=== PATIENT | female | born 1965 | race Two or more races ===

== ENCOUNTER 2024-03-07 00:34 | Inpatient (IN) | payer OTHER ==
[~2024-03-07] VITALS: Ht 160 cm; Wt 59.0 kg
[2024-03-07] MEDS ORDERED: SINGULAIR5 MG PO (00:38)
--- NOTE | 2024-03-07 00:38 | NUR ---
SE RECIBE PTE EN AMBULANCIA LA MISMA SE OBSERVA RECIBIENDO TERAPIA RESPIRATORIA ALBUTEROL PARAMEDICOS REFIEREN SER LA SEGUNDA DOSIS QUE LE BRINDAN JUNTO A SOLUMEDROL POR VENA DONDE SE OBSERVA #18 EN BRAZO JJ YA QUE PTE PRESENTA ASMA DE LA CUAL PADECE.
[2024-03-07] MEDS ORDERED: BUDESONIDE 0.5 MG/2 ML AMPUL.NEB IH STA (01:10)
[2024-03-07] MEDS ORDERED: HYDROCODONE/CHLORPHEN P-STIREX 5 ML ML PO STA (01:12)
[2024-03-07] MEDS ORDERED: ALBUTEROL SULFATE 3 ML/2.5 MG AMPUL.NEB IH SCH ×2 (01:13→01:15)
--- NOTE | 2024-03-07 01:22 | NUR ---
PTE ALERTA Y ORIENTADA X3. SE REALIZAN MUESTRAS DE LAB TRISTAN ORDEN MEDICA Y BAJO MEDIDAS ASEPTICAS. SE ADMNISTRA MEDICAMENTO TRISTAN ORDEN MEDICA. SE NOTIFICAN TERAPIAS A TR.
[2024-03-07 01:27] LABS: HEMATOCRIT 40.2 % (36.0-45.00); HEMOGLOBIN 13.9 g/dL (12.0-15.00); MEAN CELL VOLUME 86.1 fL (80.00-100.00); MEAN CORPUSCULAR HEMOGLOBIN 29.8 pg (27.00-32.0); MEAN CORPUSCULAR HGB CONC 34.6 g/dl (32.0-36.0); PLATELET COUNT 298 K/uL (150-450); RED BLOOD COUNT 4.66 M/uL (4.00-6.00); RED CELL DISTRIBUTION WIDTH 13.5 % (11.5-14.5)
[2024-03-07 02:04] LABS: ALBUMIN 4.2 gm/dL (3.4-5.0); BILIRUBIN TOTAL 0.42 mg/dL (0.3-1.2); CALCIUM 9.8 mg/dL (8.5-10.1); CREATININE SERUM 0.58 mg/dL (0.55-1.02); GFR 106.04; GLOBULINA 3.5 G/DL (2.4-3.5); POTASSIUM 3.69 mEq/L (3.5-5.1); TOTAL PROTEIN 7.7 gm/dL (6.4-8.2)
--- NOTE | 2024-03-07 07:31 | NUR ---
SE RECIBE PTE ALERTA ORIENTADA X3.SE RECIBE EN CHARLA CON BARANDAS ELEVADAS POR FAIR SEGURIDAD.VENOPUNCION PATENTE MANDEEP DE EDEMA Y ERITEMA H/L #18 EN DERECHA.PENDIENTE CONSULTA MEDICA CON .
--- NOTE | 2024-03-07 07:34 | NUR ---
SE RECIBE PTE ALERTA ORIENTADA X3 EN CHARLA CON BARANDAS ELEVADAS POR FAIR SEGURIDAD CON H/L EN SARAHO JJ ANGIO #18.PENDIENTE CONSULTA MEDICA CON .
[2024-03-07] MEDS ORDERED: SODIUM CHLORIDE 0.45 % 1,000 ML IV SCH (08:00)
[2024-03-07] MEDS ORDERED: GUAIFEN/DEXTROMETHORPHAN/PE 10 ML BLIST.PACK PO PRN (08:15)
[2024-03-07 08:44] VITALS: BP 120/76
[2024-03-07] MEDS ORDERED: LEVALBUTEROL HCL 0.63 MG/3 ML SOLUTION IH SCH (09:00)
[2024-03-07] MEDS ORDERED: AZITHROMYCIN 500 MG in 0.9 % SODIUM CHLORIDE 250 ML IV SCH (09:00)
[2024-03-07] MEDS ORDERED: METHYLPREDNISOLONE SOD SUCC 40 MG VIAL IV SCH (09:00)
[2024-03-07] MEDS ORDERED: BENZONATATE 100 MG CAPSULE PO SCH (09:00)
[2024-03-07] MEDS ORDERED: FAMOtidine 20 MG TABLET PO SCH (09:00)
[2024-03-07] MEDS ORDERED: IPRATROPIUM BROMIDE 0.5 MG/2.5 ML AMPUL.NEB IH SCH (09:00)
[2024-03-07 16:20] VITALS: BP 126/74; O2SAT 98
[2024-03-07] MEDS ORDERED: MONTELUKAST SODIUM 10 MG TABLET PO SCH (17:00)
[2024-03-07] MEDS ORDERED: LORATADINE 10 MG TABLET PO SCH (21:00)
[2024-03-08 01:29] VITALS: BP 128/78; O2SAT 98
[2024-03-08 06:05] LABS: HEMATOCRIT 38.5 % (36.0-45.00); HEMOGLOBIN 12.9 g/dL (12.0-15.00); MEAN CELL VOLUME 86.8 fL (80.00-100.00); MEAN CORPUSCULAR HEMOGLOBIN 29.1 pg (27.00-32.0); MEAN CORPUSCULAR HGB CONC 33.5 g/dl (32.0-36.0); PLATELET COUNT 287 K/uL (150-450); RED BLOOD COUNT 4.44 M/uL (4.00-6.00)
[2024-03-08 06:41] LABS: ALBUMIN 3.9 gm/dL (3.4-5.0); BILIRUBIN TOTAL 0.4 mg/dL (0.3-1.2); CREATININE SERUM 0.56 mg/dL (0.55-1.02); GFR 110.42; GLOBULINA 3.1 G/DL (2.4-3.5); POTASSIUM 4.38 mEq/L (3.5-5.1)
[2024-03-08 08:33] VITALS: BP 124/80; O2SAT 100
[2024-03-08 15:55] VITALS: BP 111/68; O2SAT 98
[2024-03-08 22:22] VITALS: BP 122/79
[2024-03-09 02:01] VITALS: BP 118/76; O2SAT 95
[2024-03-09 08:36] VITALS: BP 106/64; O2SAT 97
[2024-03-09] MEDS ORDERED: LORATADINE10 MG PO (15:31)
[2024-03-09] MEDS ORDERED: IPRATROPIU0.2 MG/1 M IH (15:32)
[2024-03-09] MEDS ORDERED: MONTELUKAST SOD10 MG PO (15:33)
[2024-03-09] MEDS ORDERED: BENZONATATE100 MG PO (15:33)
[2024-03-09] MEDS ORDERED: LEVALBUTER0.31 MG/3 IH (15:33)
[2024-03-09] MEDS ORDERED: TRELEGY ELLIPT1 EACH IH (15:34)
[2024-03-09] MEDS ORDERED: MEDROLPACK PO (15:34)
== END 2024-03-09 17:58 | disposition home or self-care (01) | DRG 203 ==
LOC: ER 00:34 → SEC-K 08:13 → MEDI 03-08 15:49
PROVIDERS: General Practice; ADMIT Internal Medicine; ATTEND Internal Medicine
PROC: BB24ZZZ Computerized Tomography (CT Scan) of Bilateral Lungs (ICD-10-PCS; principal; 2024-03-07)
PROC: 3E0F7GC Introduction of Other Therapeutic Substance into Respiratory Tract, Via Natural or Artificial Opening (ICD-10-PCS; 2024-03-07)
DX: J45.901 Unspecified asthma with (acute) exacerbation (principal); R06.00 Dyspnea, unspecified